=== PATIENT | female | born 1940 | race Caucasian/White ===

== ENCOUNTER 2018-07-07 22:19 | Inpatient (IN) ==
[2018-07-07 23:20] LABS: Baso # (Auto) 0.1 th/mm3 (0.0-0.2); Baso % (Auto) 0.8 % (0.0-2.0); Eos % (Auto) 0.2 % (0.0-4.0); Hematocrit 39.4 % (35.0-46.0); Hemoglobin 13.5 gm/dL (11.6-15.3); Lymph % (Auto) 25.5 % (9.0-44.0); Mean Corpuscular HGB Conc 34.3 % (32.0-36.0); Mean Corpuscular Hemoglobin 31.3 pg (27.0-34.0); Mean Corpuscular Volume 91.4 fL (80.0-100.0); Mean Platelet Volume 8.2 fL (7.0-11.0); Mono # (Auto) 0.8 th/mm3 (0.0-0.9); Mono % (Auto) 6.6 % (0.0-8.0); Neut # (Auto) 7.8 th/mm3 (1.8-7.7); Neut % (Auto) 66.9 % (16.0-70.0); Platelet Count 162 th/mm3 (150-450); Red Blood Count 4.31 mil/mm3 (4.00-5.30); Red Cell Distribution Width 13.3 % (11.6-17.2); White Blood Count 11.6 th/mm3 (4.0-11.0)
--- NOTE | 2018-07-07 23:26 | ED ---
HPI General Chief complaint: Medical Clearance Stated complaint: Transfer from [facility] Time Seen by Provider: 07/07/18 22:36 History of Present Illness HPI Narrative: pt sent from [facility] in [place] from 8 mm left ureter stone with hydronephrosis, THe ER attending at that ER spoke to Dr Miguel dc he accepted transfer for OR in AM , pt received antibitoics IV at the other hospital and Her UA had 10 -[address] reports comes with the Patient and CD disc. He has Histroy of CVA . pt had sudden onset of left flank to left lateral abdo pain with repeat vomiting episodes , She went to [place] , recent MEDS and transferred to [place] [facility] Home Medications Medication Instructions Recorded Confirmed albuterol sulfate 2.5 mg INHALATION Q4H PRN 07/07/18 07/07/18 aspirin [Aspir-81] 81 mg PO DAILY 07/07/18 07/07/18 atorvastatin 20 mg PO DAILY 07/07/18 07/07/18 docusate sodium 50 mg PO DAILY 07/07/18 07/07/18 duloxetine 20 mg PO BID 07/07/18 07/07/18 peg 3350-sod chlor-potass cit See Label Instructions .ROUTE 07/07/18 07/07/18 .COMPLEX tramadol 50 mg PO QID 07/07/18 07/07/18 Previous Rx's Medication Instructions Recorded nitrofurantoin monohyd/m-cryst 100 mg PO BID #14 cap 07/09/18 [Macrobid] Allergies Allergy/AdvReac Type Severity Reaction Status Date / Time azithromycin Allergy Nausea/Vomi Verified 07/07/18 22:45 ting cephalexin Allergy Nausea/Vomi Verified 07/07/18 22:45 ting codeine Allergy Nausea/Vomi Verified 07/07/18 22:45 ting diazepam Allergy Unconscious Verified 07/07/18 22:45 latex Allergy Rash Verified 07/07/18 22:45 levofloxacin Allergy Nausea/Vomi Verified 07/07/18 22:45 ting Sulfa (Sulfonamide Allergy Rash Verified 07/07/18 22:45 Antibiotics) meperidine AdvReac Unknown Nausea/Vomi Verified 07/07/18 22:45 ting Review of Systems ROS: all other systems reviewed are negative [facility] Medical History Medical History Arthritis (Acute) COPD (chronic obstructive pulmonary disease) (Acute) DVT (deep venous thrombosis) (Acute) Diabetes (Acute) Fibromyalgia (Acute) GERD (gastroesophageal reflux disease) (Acute) HTN (hypertension) (Acute) Hyperlipidemia (Acute) Pneumonia (Acute) Thyroid disease (Acute) Social History Social History Substance History: No History of Abuse Second Hand Smoke Exposure: No Smoking Status: Former smoker Tobacco Type: Cigarettes How Often Do You Have a Drink Containing Alcohol: Never Immunization History Tetanus Immunization: <5 Years Exam Narrative Exam Narrative: GENERAL: Patient in no acute distress at this time SKIN: Warm and dry. HEAD: Atraumatic. Normocephalic. EYES: Pupils equal and round. No scleral icterus. No injection or drainage. ENT: No nasal bleeding or discharge. Mucous membranes pink and moist. NECK: Trachea midline. No JVD. CARDIOVASCULAR: Regular rate and rhythm. RESPIRATORY: No accessory muscle use. Clear to auscultation. Breath sounds equal bilaterally. GASTROINTESTINAL: Abdomen soft, non-tender, nondistended. Hepatic and splenic margins not palpable. MUSCULOSKELETAL: Extremities without clubbing, cyanosis, or edema. No obvious deformities. NEUROLOGICAL: Awake and alert.. PSYCHIATRIC: insight and judgment normal. Course Initial Documented Vital Signs Pulse Rate 80 07/07/18 22:26 Respiratory Rate 20 07/07/18 22:26 Blood Pressure 159/72 H 07/07/18 22:26 Pulse Oximetry 97 07/07/18 22:26 Last Documented Vital Signs Temperature 97.9 F 07/09/18 08:00 Pulse Rate 82 07/09/18 08:00 Respiratory Rate 18 07/09/18 08:00 Blood Pressure 91/61 L 07/09/18 08:00 Pulse Oximetry 94 L 07/09/18 08:00 Medical Decision Making MDM Narrative Medical decision making narrative: . I speak with Dr. Rivera he says make the patient n.p.o. give her fluids he will taken to the OR in the morning I admit her to [facility] she is stable at this time I review all the labs and records I did come with her from [facility] Medical Screen Exam Complete: Yes Emergency Medical Condition: Yes Differential Diagnosis Differential Diagnosis: Differential diagnosis includes obstructive uropathy and Dr. Rivera is to take the patient to the OR in the a.m. patient has been given antibiotics and fluid and pain medication differential diagnosis includes UTI pyelonephritis obstructive uropathy patient Lab Data Lab results reviewed: Yes I reviewed the patient's lab results. Result diagrams: 07/09/18 09:00 07/09/18 09:00 Lab Results 07/07/18 07/07/18 07/08/18 Range/Units 22:55 22:55 03:48 WBC 11.6 H (4.0-11.0) th/mm3 RBC 4.31 (4.00-5.30) mil/mm3 Hgb 13.5 (11.6-15.3) gm/dL Hct 39.4 (35.0-46.0) % MCV 91.4 (80.0-100.0) fL MCH 31.3 (27.0-34.0) pg MCHC 34.3 (32.0-36.0) % RDW 13.3 (11.6-17.2) % Plt Count 162 (150-450) th/mm3 MPV 8.2 (7.0-11.0) fL Neut % (Auto) 66.9 (16.0-70.0) % Lymph % (Auto) 25.5 (9.0-44.0) % [place] % (Auto) 6.6 (0.0-8.0) % Eos % (Auto) 0.2 (0.0-4.0) % Baso % (Auto) 0.8 (0.0-2.0) % Neut # (Auto) 7.8 H (1.8-7.7) th/mm3 Lymph # (Auto) 3.0 (1.0-4.8) th/mm3 [place] # (Auto) 0.8 (0.0-0.9) th/mm3 Eos # (Auto) 0.0 (0.0-0.4) th/mm3 Baso # (Auto) 0.1 (0.0-0.2) th/mm3 WBC Differential . Differential Comment Auto diff final Sodium 142 (136-145) meq/L Potassium 3.9 (3.5-5.1) meq/L Chloride 105 (98-107) meq/L Carbon Dioxide 27.9 (21.0-32.0) meq/L Anion Gap 9 (5-15) meq/L BUN 11 (7-18) mg/dL Creatinine 0.72 (0.50-1.00) mg/dL Estimated GFR 78 L (>89) mL/min POC Glucose (68-110) mg/dl Random Glucose 120 H (74-106) mg/dL Calcium 8.7 (8.5-10.1) mg/dL Total Bilirubin 0.7 (0.2-1.0) mg/dL AST 19 (15-37) U/L ALT 35 (10-53) U/L Alkaline Phosphatase 81 (45-117) U/L Total Protein 7.0 (6.4-8.2) g/dL Albumin 3.9 (3.4-5.0) g/dL Urine Color Yellow (Yellw/Straw) Urine Clarity Hazy H (Clear) Urine pH 6.0 (5.0-8.5) Ur Specific [place] 1.011 (1.002-1.035) Urine Protein 30 H (Neg-Trace) mg/dL Urine Glucose (UA) Negative (Negative) mg/dL Urine Ketones Negative (Negative) mg/dL Urine Occult Blood Moderate H (Negative) Urine Nitrate Negative (Negative) Urine Bilirubin Negative (Negative) Urine Urobilinogen Less than 2 (Less than 2) mg/dL Ur Leukocyte Esterase Large H (Negative) Urine RBC 17 H (0-3) /hpf Urine WBC 153 H (0-5) /hpf Ur Squamous Epith Cells 1 (0-5) /hpf Urine Bacteria Rare H (None) /hpf Urine Mucus Few H (Occasional) /lpf Ur Microscopic Review Not Reportable 07/08/18 07/09/18 07/09/18 Range/Units 16:25 09:00 09:00 WBC 14.0 H (4.0-11.0) th/mm3 RBC 4.12 (4.00-5.30) mil/mm3 Hgb 13.1 (11.6-15.3) gm/dL Hct 36.9 (35.0-46.0) % MCV 89.5 (80.0-100.0) fL MCH 31.7 (27.0-34.0) pg MCHC 35.4 (32.0-36.0) % RDW 12.7 (11.6-17.2) % Plt Count 174 (150-450) th/mm3 MPV 8.2 (7.0-11.0) fL Neut % (Auto) 74.9 H (16.0-70.0) % Lymph % (Auto) 17.8 (9.0-44.0) % [place] % (Auto) 7.1 (0.0-8.0) % Eos % (Auto) 0.1 (0.0-4.0) % Baso % (Auto) 0.1 (0.0-2.0) % Neut # (Auto) 10.5 H (1.8-7.7) th/mm3 Lymph # (Auto) 2.5 (1.0-4.8) th/mm3 [place] # (Auto) 1.0 H (0.0-0.9) th/mm3 Eos # (Auto) 0.0 (0.0-0.4) th/mm3 Baso # (Auto) 0.0 (0.0-0.2) th/mm3 WBC Differential . Differential Comment Auto diff final Sodium 141 (136-145) meq/L Potassium 3.8 (3.5-5.1) meq/L Chloride 106 (98-107) meq/L Carbon Dioxide 21.7 (21.0-32.0) meq/L Anion Gap 13 (5-15) meq/L BUN 14 (7-18) mg/dL Creatinine 0.73 (0.50-1.00) mg/dL Estimated GFR 77 L (>89) mL/min POC Glucose 132 H (68-110) mg/dl Random Glucose 112 H (74-106) mg/dL Calcium 9.4 (8.5-10.1) mg/dL Total Bilirubin 0.8 (0.2-1.0) mg/dL AST 24 (15-37) U/L ALT 32 (10-53) U/L Alkaline Phosphatase 78 (45-117) U/L Total Protein 6.9 (6.4-8.2) g/dL Albumin 3.7 (3.4-5.0) g/dL Urine Color (Yellw/Straw) Urine Clarity (Clear) Urine pH (5.0-8.5) Ur Specific [place] (1.002-1.035) Urine Protein (Neg-Trace) mg/dL Urine Glucose (UA) (Negative) mg/dL Urine Ketones (Negative) mg/dL Urine Occult Blood (Negative) Urine Nitrate (Negative) Urine Bilirubin (Negative) Urine Urobilinogen (Less than 2) mg/dL Ur Leukocyte Esterase (Negative) Urine RBC (0-3) /hpf Urine WBC (0-5) /hpf Ur Squamous Epith Cells (0-5) /hpf Urine Bacteria (None) /hpf Urine Mucus (Occasional) /lpf Ur Microscopic Review Discharge Plan Discharge Disposition Patient Disposition: 01 Discharge Home Discharge Condition Condition: Good Discharge Order Discharge Orders: Discharge Order (Routine); Ordered 07/09/18 Ordered By: Alexi Elias Urology Clear for Discharge (Routine); Ordered 07/08/18 Ordered By: Christiano Rivera Physicians Team ED Provider: Sunny Barrett Primary Care Provider: SHAJI, Attending Provider: Alexi Elias Other Providers: Christiano Rivera ; [facility],Insurance Status ED Status: Left Department Discharge Information Discharge Date/Time: 07/08/18 03:37
[2018-07-07 23:33] LABS: Alanine Aminotransferase 35 U/L (10-53); Albumin 3.9 g/dL (3.4-5.0); Anion Gap 9 meq/L (5-15); Aspartate Aminotransferase 19 U/L (15-37); Blood Urea Nitrogen 11 mg/dL (7-18); Calcium 8.7 mg/dL (8.5-10.1); Carbon Dioxide 27.9 meq/L (21.0-32.0); Chloride 105 meq/L (98-107); Glomerular Filtration Rate 78 mL/min (>89); Glucose,Random 120 mg/dL (74-106); Potassium 3.9 meq/L (3.5-5.1); Sodium 142 meq/L (136-145)
[2018-07-07 23:35] LABS: Alkaline Phosphatase 81 U/L (45-117)
[2018-07-08] MEDS ORDERED: Acetaminophen 325 MG Tablet PO PRN (01:21)
[2018-07-08] MEDS ORDERED: Bisacodyl 10 MG Supp RECTAL PRN (01:21)
[2018-07-08] MEDS ORDERED: Sod Chloride 0.9% Inj 1,000 ML IV.CONT SCH (01:30)
--- NOTE | 2018-07-08 02:11 | P.HPIM ---
History of Present Illness Primary Care Physician: UNKNOWN History of Present Illness: This is a 78-year-old female with a PMH of HTN, Hyperlipidemia, Hypothyroidism, COPD, h/o DVT and DM who was sent to [place] from [facility] for eval by Dr. Rivera w/ Urology for obstructing renal stone. Pt w/ c/o left flank pain starting abruptly yesterday, was seen at [place], had CT Abd/Pelvis showing obstructed 8mm left stone w/ hydronephrosis, Dr. Rivera consulted and accepted pt in transfer for OR in am. Pt currently w/ ongoing pain, sharp, 10/, non- radiating. Denies fever or chills. On arrival, BP 159/72, HR 80, O2 sat 97% on RA. WBC 11.6. Chemistry unremarkable. S/p Rocephin IV at [place] prior to transfer. - Diagnosis (1) Renal stone (2) Hydronephrosis (3) UTI (urinary tract infection) Review of Systems PAST FAMILY HISTORY: Reviewed. No h/o DM or CAD All other systems reviewed negative except as stated in HPI [facility] - History History Provided By: Patient, Drill Foreman / EMT - Medical History Medical History: Medical History (Last Updated 07/07/18 @ 22:40 by Aretha Gallegos RN) Arthritis COPD (chronic obstructive pulmonary disease) DVT (deep venous thrombosis) Diabetes Fibromyalgia GERD (gastroesophageal reflux disease) HTN (hypertension) Hyperlipidemia Pneumonia Thyroid disease - Tobacco History Second Hand Smoke Exposure: No Tobacco Use In Past 30 Days: No Smoking Status: Former smoker - Alcohol History How Often Do You Have a Drink Containing Alcohol: Never - Substance Use History Substance History: No History of Abuse - Immunization History Tetanus Immunization: <5 Years Medications and Allergies Active Medications: Active Medications Acetaminophen (Tylenol) 650 mg PO Q4H PRN PRN Reason: Temp > 100.4 Al Hydroxide/Mg Hydroxide (Milk Of Magnesia Liq) 30 ml PO Q12H PRN PRN Reason: Mild Constipation Atorvastatin Calcium (Lipitor) 20 mg PO DAILY VANCE Bisacodyl (Dulcolax Supp) 10 mg RECTAL DAILY PRN PRN Reason: SEVERE CONSITIPATION Duloxetine HCl (Cymbalta) 20 mg PO BID VANCE Hydromorphone HCl (Dilaudid Pf Inj) 1 mg IV.PUSH Q4H PRN PRN Reason: PAIN 6-10 Aztreonam 1,000 mg/ Sodium (Chloride) 100 mls @ 200 mls/hr IV.SIG Q8H VANCE Sodium Chloride (Ns Inj) 1,000 mls @ 100 mls/hr IV.CONT .Q10H [facility] Lactulose (Lactulose Liq) 30 ml PO DAILY PRN PRN Reason: SEVERE CONSITIPATION Ondansetron HCl (Zofran Inj) 4 mg IV.PUSH Q6H PRN PRN Reason: NAUSEA OR VOMITING Senna/Docusate Sodium (Neida-Colace) 1 tab PO BID [facility] Sennosides (Senokot) 17.2 mg PO Q12H PRN PRN Reason: Moderate Constipation Allergies Allergy/AdvReac Type Severity Reaction Status Date / Time azithromycin Allergy Nausea/Vomi Verified 07/07/18 22:45 ting cephalexin Allergy Nausea/Vomi Verified 07/07/18 22:45 ting codeine Allergy Nausea/Vomi Verified 07/07/18 22:45 ting diazepam Allergy Unconscious Verified 07/07/18 22:45 latex Allergy Rash Verified 07/07/18 22:45 levofloxacin Allergy Nausea/Vomi Verified 07/07/18 22:45 ting Sulfa (Sulfonamide Allergy Rash Verified 07/07/18 22:45 Antibiotics) meperidine AdvReac Unknown Nausea/Vomi Verified 07/07/18 22:45 ting Home Medications Medication Instructions Recorded Confirmed Type albuterol sulfate 2.5 mg INHALATION Q4H PRN 07/07/18 07/07/18 History aspirin [Aspir-81] 81 mg PO DAILY 07/07/18 07/07/18 History atorvastatin 20 mg PO DAILY 07/07/18 07/07/18 History docusate sodium 50 mg PO DAILY 07/07/18 07/07/18 History duloxetine 20 mg PO BID 07/07/18 07/07/18 History peg 3350-sod chlor-potass cit See Label Instructions .ROUTE 07/07/18 07/07/18 History .COMPLEX tramadol 50 mg PO QID 07/07/18 07/07/18 History Exam Vital signs: Vital Signs 07/07/18 22:26 Pulse Rate 80 Respiratory Rate 20 Blood Pressure 159/72 H Pulse Oximetry 97 Intake & Output 07/07/18 07/07/18 07/08/18 06:59 18:59 06:59 Weight 68.946 kg Narrative: PE: GENERAL: Pleasant elderly white female in no acute distress. SKIN: Focused skin assessment warm and dry. HEENT: PERRLA, EOMI. No scleral icterus or conjunctival pallor. No lid lag or facial droop. CARDIOVASCULAR: Regular rate and rhythm. No obvious murmurs to auscultation. No chest tenderness to palpation. RESPIRATORY: No obvious rhonchi or wheezing. Clear to auscultation. Breath sounds equal bilaterally. GASTROINTESTINAL: Abdomen soft, left flank tenderness to palpation, nondistended. BS normal. MUSCULOSKELETAL: Extremities without clubbing, cyanosis, or edema. No obvious deformities. NEUROLOGICAL: Awake, alert and oriented x4. No focal neurologic deficits. Moving both upper and lower extremities spontaneously. PSYCHIATRIC: Appropriate mood and affect. Insight and judgment normal. Results - Labs CBC & Chem 7: 07/07/18 22:55 07/07/18 22:55 Labs: Short CBC 07/07/18 Range/Units 22:55 WBC 11.6 H (4.0-11.0) th/mm3 Hgb 13.5 (11.6-15.3) gm/dL Hct 39.4 (35.0-46.0) % Plt Count 162 (150-450) th/mm3 BMP 07/07/18 22:55 Sodium 142 Potassium 3.9 Chloride 105 Carbon Dioxide 27.9 BUN 11 Creatinine 0.72 Calcium 8.7 Liver Function 07/07/18 Range/Units 22:55 Total Bilirubin 0.7 (0.2-1.0) mg/dL AST 19 (15-37) U/L ALT 35 (10-53) U/L Alkaline Phosphatase 81 (45-117) U/L Albumin 3.9 (3.4-5.0) g/dL Caprini VTE Risk Assessment Caprini VTE Risk Assessment: No/Low Risk (score <= 1) Caprini Risk Assessment Model: Point Value = 1 Point Value = 2 Point Value = 3 Point Value = 5 Age 41-60 Minor surgery BMI > 25 kg/m2 Swollen legs Varicose veins or History of unexplained or recurrent spontaneous Oral contraceptives or hormone replacement Sepsis (< 1 month) Serious lung disease, including pneumonia (< 1 month) Abnormal pulmonary function Acute myocardial infarction Congestive heart failure (< 1 month) History of inflammatory bowel disease Medical patient at bed rest Age 61-74 Arthroscopic surgery Major open surgery (> 45 min) Laparoscopic surgery (> 45 min) Malignancy Confined to bed (> 72 hours) Immobilizing plaster cast Central venous access Age >= 75 History of VTE Family history of VTE Factor V Leiden Prothrombin [id number] Lupus anticoagulant Anticardiolipin antibodies Elevated serum homocysteine Heparin-induced thrombocytopenia Other congenital or acquired thrombophilia Stroke (< 1 month) Elective arthroplasty Hip, pelvis, or leg fracture Acute spinal cord injury (< 1 month) Prophylaxis Regimen: Total Risk Factor Score Risk Level Prophylaxis Regimen 0-1 Low Early ambulation 2 Moderate Order ONE of the following: *Sequential Compression Device (SCD) *Heparin 5000 units SQ BID 3-4 Higher Order ONE of the following medications: *Heparin 5000 units SQ TID *Enoxaparin/Lovenox 40 mg SQ daily (WT < 150 kg, CrCl > 30 mL/min) *Enoxaparin/Lovenox 30 mg SQ daily (WT < 150 kg, CrCl > 10-29 mL/min) *Enoxaparin/Lovenox 30 mg SQ BID (WT < 150 kg, CrCl > 30 mL/min) AND/OR *Sequential Compression Device (SCD) 5 or more Highest Order ONE of the following medications: *Heparin 5000 units SQ TID (Preferred with Epidurals) *Enoxaparin/Lovenox 40 mg SQ daily (WT < 150 kg, CrCl > 30 mL/min) *Enoxaparin/Lovenox 30 mg SQ daily (WT < 150 kg, CrCl > 10-29 mL/min) *Enoxaparin/Lovenox 30 mg SQ BID (WT < 150 kg, CrCl > 30 mL/min) AND *Sequential Compression Device (SCD) Assessment and Plan - Assessment (1) Renal stone Code(s): N20.0 - Calculus of kidney Status: Acute (2) Hydronephrosis Code(s): N13.30 - Unspecified hydronephrosis Status: Acute (3) UTI (urinary tract infection) Code(s): N39.0 - Urinary tract infection, site not specified Status: Acute - Plan A/P: 1. Renal Stone: CT Abd/Pelvis from [facility] w/ 8mm left UVJ stone w/ obstruction and moderate hydronephrosis, CT report/disc in chart. Pt accepted by Dr. Rivera, plan for OR in am. NPO, IVF, continue IV Abx, analgesics/ antiemetics 2. UTI: U/a w/ UTI from records sent from [place], s/p Rocephimaryellen IV prior to transfer, will continue w/ IV Abx, monitor I/O 3. DVT Prophylaxis: SCD/Teds 4. Social work for d/c planning as needed 5. Case discussed w/ ER physician at length, labs/records/imaging reviewed by me.
[2018-07-08] MEDS: HYDROmorphone PF Inj 2 MG/ML Vial IV.PUSH PRN ×2 (03:49→13:27)
[2018-07-08 04:28] LABS: Bacteria,Urine Rare /hpf; Bilirubin,Urine Negative (Negative); Clarity,Urine Hazy (Clear); Color,Urine Yellow (Yellw/Straw); Glucose,Urine (UA) Negative (Negative); Leukocyte Esterase,Urine Large (Negative); Mucus,Urine Few /lpf (Occasional); Nitrite,Urine Negative (Negative); Specific Gravity,Urine 1.011 (1.002-1.035); Squamous Epithelial Cell,Urine 1 /hpf (0-5)
[2018-07-08] MEDS ORDERED: Chlorhexidine Gluconate 2% 1 Pack (2 Cloths) TOPICAL ONE (04:30)
[2018-07-08] MEDS: Senna/Docusate Sodium 8.6/50 MG Tablet PO SCH ×2 (08:52→21:19)
[2018-07-08] MEDS: Sod Chloride 0.9% Inj 1,000 ML IV.CONT SCH ×2 (08:55→18:23)
--- NOTE | 2018-07-08 09:31 | P.PNIM ---
Subjective Interval history: 78 year old female with history of HLD, fibromyalgia, COPD, history of DVT, and nephrolithiasis admitted overnight for left obstructing renal stone. She reports she still has some LLQ and L CVA tenderness but overall her pain has improved with analgesics and hydration. She denies dysuria, hematuria, nausea, or vomiting though she did have some nausea yesterday. Her only complaint is her mouth being very dry from being NPO. Physical Exam Vital signs: Vital Signs 07/07/18 22:26 07/08/18 04:00 07/08/18 08:00 Temperature 97.6 F 98 F Pulse Rate 80 65 73 Respiratory Rate 20 18 20 Blood Pressure 159/72 H 160/75 H 138/68 Pulse Oximetry 97 97 94 L Intake & Output 07/07/18 07/08/18 07/08/18 18:59 06:59 18:59 Intake Total 100 / 100 636 / 636 Balance 100 / 100 636 / 636 Weight 68.9 kg Intake: IV 100 / 100 636 / 636 NS Inj 1,000 ML @ 100 mls/hr IV 636 / 636 .CONT .Q10H VANCE Rx#:[id number] Azactam Inj 1,000 MG In NS Inj 100 / 100 100 ML @ 200 mls/hr IV.SIG Q8H VANCE Rx#:[id number] Other: Date of Last Bowel Movement 07/07/18 Narrative: GENERAL: WN, WD elderly female resting in bed in NAD. SKIN: Warm and dry. HEENT: AT/NC. Pupils equal and round. Dry oral mucosa and lips. NECK: Supple no tender LAD or JVD. HEART: RRR no m/r/g. LUNGS: CTAB without wheezes or crackles. ABDOMEN: +BS, soft, LLQ TTP. Nondistended. No guarding. BACK: Left CVA TTP. EXTREMITIES: No LE edema. Calves supple and nontender. NEURO: Awake and alert. PSYCH: Appropriate mood and affect. Results - Labs CBC & Chem 7: 07/07/18 22:55 07/07/18 22:55 Laboratory Results - last 24 hr 07/07/18 07/07/18 07/08/18 22:55 22:55 03:48 WBC 11.6 H RBC 4.31 Hgb 13.5 Hct 39.4 MCV 91.4 MCH 31.3 MCHC 34.3 RDW 13.3 Plt Count 162 MPV 8.2 Neut % (Auto) 66.9 Lymph % (Auto) 25.5 [place] % (Auto) 6.6 Eos % (Auto) 0.2 Baso % (Auto) 0.8 Neut # (Auto) 7.8 H Lymph # (Auto) 3.0 [place] # (Auto) 0.8 Eos # (Auto) 0.0 Baso # (Auto) 0.1 WBC Differential . Differential Comment Auto diff final Sodium 142 Potassium 3.9 Chloride 105 Carbon Dioxide 27.9 Anion Gap 9 BUN 11 Creatinine 0.72 Estimated GFR 78 L Random Glucose 120 H Calcium 8.7 Total Bilirubin 0.7 AST 19 ALT 35 Alkaline Phosphatase 81 Total Protein 7.0 Albumin 3.9 Urine Color Yellow Urine Clarity Hazy H Urine pH 6.0 Ur Specific [place] 1.011 Urine Protein 30 H Urine Glucose (UA) Negative Urine Ketones Negative Urine Occult Blood Moderate H Urine Nitrate Negative Urine Bilirubin Negative Urine Urobilinogen Less than 2 Ur Leukocyte Esterase Large H Urine RBC 17 H Urine WBC 153 H Ur Squamous Epith Cells 1 Urine Bacteria Rare H Urine Mucus Few H Ur Microscopic Review Not Reportable Assessment and Plan - Assessment (1) Renal stone Code(s): N20.0 - Calculus of kidney Status: Acute (2) Hydronephrosis Code(s): N13.30 - Unspecified hydronephrosis Status: Acute (3) UTI (urinary tract infection) Code(s): N39.0 - Urinary tract infection, site not specified Status: Acute - Plan 78 year old female with history of HLD, fibromyalgia, COPD, history of DVT, and nephrolithiasis admitted overnight for left obstructing renal stone. 1. Urolithiasis - Pt transferred from [facility] after CT A/P showed 8 mm left ureter stone with associated hydrionephrosis - Urology accepted transfer to [place] and has been consulted - NPO for surgery today - Pain control - IV hydration - Antiemetics PRN 2. UTI - U/A with UTI from records sent from [place], will need to f/u urine culture - Continue Aztreonam (multiple abx allergies) 3. HLD - Resume home statin 4. Fibromyalgia - Continue home Cymbalta 5. COPD - Not in acute exacerbation - Supplemental O2 PRN - Nebs PRN DVT prophylaxis: holding chemical anticoagulation in anticipation of surgery, SCDs Discussed Condition With: Patient Discharge Planning: When cleared by urology
--- NOTE | 2018-07-08 10:11 | ECG ---
Date Performed: 07/08/2018 Time Performed: 09:14:53 PTAGE: 78 years EKG: Sinus rhythm NORMAL ECG NO PREVIOUS TRACING DOCTOR: Chin Nugent Interpretating Date/Time 07/08/2018 10:10:50
--- NOTE | 2018-07-08 13:54 | MB ---
cc: Christiano Rivera DO DATE: 07/08/2018 HISTORY OF PRESENT ILLNESS: This is a 78-year-old male transferred from [facility] for a 9 mm distal left ureteral stone causing obstruction. The patient has a history of stones in the past, but due to the fact there is no urology prison librarian at [facility], she was transferred here. CT scan at the emergency room at [place] demonstrated an 8-9 mm stone in the left distal ureter causing hydronephrosis. She denies any fever or chills. MEDICAL HISTORY: Noted for hypertension, hyperlipidemia, hypothyroidism, COPD, diabetes, history of DVT in the past, and kidney stones. SOCIAL HISTORY: Former smoker. She denies history of drug abuse. She never drinks. MEDICATIONS AND ALLERGIES: Please refer to the chart. REVIEW OF SYSTEMS: She notes left-sided flank pain, some nausea, and vomiting. She denies chest pain, shortness of breath, abdominal pain. She does have lower left abdominal pain. She denies diarrhea, constipation, skin lesions, and psychiatric problems. Remaining review of systems reviewed and were negative. PHYSICAL EXAMINATION: VITAL SIGNS: Temperature 98, heart rate 73, respiratory rate 20, 152/68. GENERAL: A well-developed, well-nourished, 78-year-old female in no acute distress. HEENT: Normocephalic, atraumatic. Pupils equal, round, regular, and reactive to light. Extraocular movements intact. NECK: Supple. HEART: Regular rate and rhythm. LUNGS: Clear. ABDOMEN: Soft, nontender. There is left CVA tenderness noted. EXTREMITIES: No cyanosis, clubbing, or edema. LABORATORY DATA: White count 11.6, hemoglobin 13.5, hematocrit 39.4, platelet count 162. Sodium 142, potassium 3.9, chloride 105, CO2 of 27.9, BUN 11, creatinine 0.72. CT again shows an 8-9 mm distal left ureteral stone. ASSESSMENT: This is a 78-year-old female with hydronephrosis on the left side due to an 8-9 mm distal left ureteral stone. PLAN: We will plan for cystoscopy, possible stent insertion, possible ureteroscopy with laser lithotripsy. Risks and benefits were discussed, and she is willing to proceed. Christiano DO CHRISTIAN Paiz/yeison , 01:31 PM , 01:37 PM
[2018-07-08] MEDS ORDERED: Lidocaine PF 1% Inj 5 ML Syringe OTHER ONE (15:19)
[2018-07-08] MEDS ORDERED: Neostigmine Inj 5 MG/5 ML Syringe IV.PUSH ONE (15:19)
[2018-07-08] MEDS ORDERED: Glycopyrrolate Inj 1 MG/5 ML Syringe IV.PUSH ONE (15:19)
--- NOTE | 2018-07-08 16:05 | P.OP ---
- Preoperative Diagnosis (1) Left ureteral stone (2) Hydronephrosis - Postoperative Diagnosis (1) Hydronephrosis (2) Left ureteral stone Date of procedure: 07/08/18 Procedure: Cystoscopy, left retrograde pyelogram, left ureteroscopy, laser lithotripsy, stone extraction, left double-J stent insertion Anesthesia: CHIDI Surgeon: Christiano Rivera DO Estimated blood loss (mL): 0 Pathology: other (Stone fragments) Operation and Findings: 78-year-old female transferred from [facility] for findings of the left ureteral stone measuring 9 mm in size causing obstruction with hydronephrosis. Decision made to bring the patient to the operating room to undergo cystoscopy with left ureteroscopy laser lithotripsy stone extraction with stent insertion. Risk and benefits were discussed preoperatively and she is willing to proceed. This was brought to the operating room and identified by myself as Alysa Hagen. She is placed in the dorsolithotomy position, prepped and draped you sterile fashion, received preprocedure antibiotics and general endotracheal tube anesthesia was administered. The short rigid ureteroscope was passed into the bladder and up into the left ureter and the stone was visualized. Using a 365 m laser fiber the stone was fragmented and then the nitinol basket was then used to retrieve all the fragments. The fragments were then sent to pathology. A retrograde pyelogram was then performed demonstrating good filling of the ureter without any filling defects identified. A 0.35 sensor wire was passed through the scope and up into the kidney. The cystoscope was backloaded over a wire and a 6 Pashto 22 cm left double-J stent was placed in good position with the string taped to the patient's lower abdomen. She will remove the string and stent tomorrow at home and follow-up in 1 month undergo review of her stone analysis at that time. She was awoken extubated transferred recovery in stable condition.
[2018-07-08] MEDS ORDERED: fentaNYL Citrate Inj 100 MCG/2 ML Ampul ONE (16:21)
[2018-07-08] MEDS ORDERED: Iohexol 300 MG/ML 50 ML Vial (for Rad Diag) IT ONE (18:04)
[2018-07-08 22:07] VITALS: RESP 18
[2018-07-09] MEDS: Sod Chloride 0.9% Inj 1,000 ML IV.CONT SCH ×2 (05:45→10:18)
[2018-07-09 09:04] VITALS: BP 91/61; PULSE 82; TEMP 97.9; O2SAT 94
[2018-07-09 10:07] LABS: Baso % (Auto) 0.1 % (0.0-2.0); Eos % (Auto) 0.1 % (0.0-4.0); Hematocrit 36.9 % (35.0-46.0); Hemoglobin 13.1 gm/dL (11.6-15.3); Lymph # (Auto) 2.5 th/mm3 (1.0-4.8); Lymph % (Auto) 17.8 % (9.0-44.0); Mean Corpuscular HGB Conc 35.4 % (32.0-36.0); Mean Corpuscular Hemoglobin 31.7 pg (27.0-34.0); Mean Corpuscular Volume 89.5 fL (80.0-100.0); Mean Platelet Volume 8.2 fL (7.0-11.0); Mono % (Auto) 7.1 % (0.0-8.0); Neut # (Auto) 10.5 th/mm3 (1.8-7.7); Neut % (Auto) 74.9 % (16.0-70.0); Platelet Count 174 th/mm3 (150-450); Red Blood Count 4.12 mil/mm3 (4.00-5.30); Red Cell Distribution Width 12.7 % (11.6-17.2)
[2018-07-09] MEDS: Senna/Docusate Sodium 8.6/50 MG Tablet PO SCH (10:19)
[2018-07-09 10:39] LABS: Albumin 3.7 g/dL (3.4-5.0); Anion Gap 13 meq/L (5-15); Aspartate Aminotransferase 24 U/L (15-37); Blood Urea Nitrogen 14 mg/dL (7-18); Calcium 9.4 mg/dL (8.5-10.1); Carbon Dioxide 21.7 meq/L (21.0-32.0); Chloride 106 meq/L (98-107); Glomerular Filtration Rate 77 mL/min (>89); Potassium 3.8 meq/L (3.5-5.1); Sodium 141 meq/L (136-145)
[2018-07-09 10:40] LABS: Glucose,Random 112 mg/dL (74-106)
[2018-07-09 10:46] LABS: Alanine Aminotransferase 32 U/L (10-53); Alkaline Phosphatase 78 U/L (45-117); Total Protein 6.9 g/dL (6.4-8.2)
--- NOTE | 2018-07-09 11:10 | P.PN ---
Subjective Interval history: Follow-up urolithiasis/hydronephrosis/UTI July 09, 2018-patient seen and examined, reports some slight left pain discomfort. Otherwise stable. Reveals some spotting in her urine otherwise stable. Afebrile. Looking forward going home today Physical Exam Vital signs: Vital Signs 07/08/18 12:00 07/08/18 16:10 07/08/18 16:15 Temperature 98 F 97.8 F Pulse Rate 73 100 H 90 Respiratory Rate 20 17 15 Blood Pressure 152/68 H 176/82 H 171/72 H Pulse Oximetry 95 99 99 07/08/18 16:30 07/08/18 16:45 07/08/18 17:00 Temperature Pulse Rate 91 H 82 78 Respiratory Rate 14 13 14 Blood Pressure 166/72 H 163/71 H 168/71 H Pulse Oximetry 97 97 97 07/08/18 17:15 07/08/18 20:00 07/09/18 00:00 Temperature 97.9 F 97.9 F 98.2 F Pulse Rate 86 92 H 86 Respiratory Rate 15 18 18 Blood Pressure 176/82 H 157/75 H 133/71 Pulse Oximetry 97 92 L 92 L 07/09/18 08:00 Temperature 97.9 F Pulse Rate 82 Respiratory Rate 18 Blood Pressure 91/61 L Pulse Oximetry 94 L Intake & Output 07/08/18 07/09/18 07/09/18 18:59 06:59 18:59 Intake Total 2236 / 2236 1200 / 1200 300 / 300 Output Total 305 / 305 1352 / 1352 Balance 1931 / 1931 -152 / -152 300 / 300 Weight 70.7 kg Intake: IV 1736 / 1736 1200 / 1200 300 / 300 NS Inj 1,000 ML @ 125 mls/hr IV 1636 / 1636 1000 / 1000 300 / 300 .CONT .Q8H VANCE Rx#:[id number] Azactam Inj 1,000 MG In NS Inj 100 / 100 200 / 200 100 ML @ 200 mls/hr IV.SIG Q8H VANCE Rx#:[id number] Anesthesia Amount 500 / 500 Output: Urine 300 / 300 1352 / 1352 Estimated Blood Loss 5 / 5 Other: # Voids 1 Narrative: GENERAL: WN, WD elderly female resting in bed in NAD. SKIN: Warm and dry. HEENT: AT/NC. Pupils equal and round. Dry oral mucosa and lips. NECK: Supple no tender LAD or JVD. HEART: RRR no m/r/g. LUNGS: CTAB without wheezes or crackles. ABDOMEN: +BS, soft, LLQ mildly TTP. Nondistended. BACK: Left CVA TTP. EXTREMITIES: No LE edema. Calves supple and nontender. NEURO: Awake and alert. PSYCH: Appropriate mood and affect. Results - Labs CBC & Chem 7: 07/09/18 09:00 07/09/18 09:00 Laboratory Results - last 24 hr 07/08/18 07/09/18 07/09/18 16:25 09:00 09:00 WBC 14.0 H RBC 4.12 Hgb 13.1 Hct 36.9 MCV 89.5 MCH 31.7 MCHC 35.4 RDW 12.7 Plt Count 174 MPV 8.2 Neut % (Auto) 74.9 H Lymph % (Auto) 17.8 [place] % (Auto) 7.1 Eos % (Auto) 0.1 Baso % (Auto) 0.1 Neut # (Auto) 10.5 H Lymph # (Auto) 2.5 [place] # (Auto) 1.0 H Eos # (Auto) 0.0 Baso # (Auto) 0.0 WBC Differential . Differential Comment Auto diff final Sodium 141 Potassium 3.8 Chloride 106 Carbon Dioxide 21.7 Anion Gap 13 BUN 14 Creatinine 0.73 Estimated GFR 77 L POC Glucose 132 H Random Glucose 112 H Calcium 9.4 Total Bilirubin 0.8 AST 24 ALT 32 Alkaline Phosphatase 78 Total Protein 6.9 Albumin 3.7 - Procedures s/p Cystoscopy, left retrograde pyelogram, left ureteroscopy, laser lithotripsy , stone extraction, left double-J stent insertion 07/08/18 Assessment and Plan - Assessment (1) Renal stone Code(s): N20.0 - Calculus of kidney Status: Acute (2) Hydronephrosis Code(s): N13.30 - Unspecified hydronephrosis Status: Acute (3) UTI (urinary tract infection) Code(s): N39.0 - Urinary tract infection, site not specified Status: Acute - Plan 78-year-old female with 1. Urolithiasis - Pt transferred from [facility] after CT A/P showed 8 mm left ureter stone with associated hydrionephrosis - s/p Cystoscopy, left retrograde pyelogram, left ureteroscopy, laser lithotripsy, stone extraction, left double-J stent insertion 07/08/18 -Appreciate input from urology - Pain control 2. UTI - U/A with UTI from records sent from [place], will need to f/u urine culture - Continue Aztreonam (multiple abx allergies). However will discharge home on p.o. Macrobid 100 mg twice daily times 7 days 3. HLD -Continue home statin 4. Fibromyalgia - Continue home Cymbalta 5. COPD - Not in acute exacerbation - Supplemental O2 PRN - Nebs PRN DVT prophylaxis: SCDs Discharge patient to home Condition on discharge: Improved Regular Diet as tolerated Ad Ximena activity Rx written: Macrobid 100mg BID x 7 days Follow-up with primary care physician
== END 2018-07-09 14:00 | disposition home or self-care (01) ==
LOC: NEPE 22:19 → NEDA 07-08 02:14 → N07 07-08 03:26
PROVIDERS: ADMIT Hospitalist; ATTEND Hospitalist